=== PATIENT | male | born 1970 | race Caucasian/White ===

== ENCOUNTER 2018-04-02 04:29 | Emergency (ER) | payer BC ==
[~2018-04-02] VITALS: Ht 182.9 cm; Wt 95.5 kg
[2018-04-02 04:32] VITALS: TEMP 97.7
[2018-04-02] MEDS ORDERED: PRILOTC PO (04:39)
[2018-04-02] MEDS ORDERED: FLEXERIL 1010 MG/TAB PO (04:56)
[2018-04-02] MEDS ORDERED: NORCO 325 MG-51 TAB PO (04:56)
[2018-04-02 06:06] VITALS: BP 123/93; PULSE 71
== END 2018-04-02 06:08 | disposition home or self-care (01) ==
LOC: COL.ER 04:29
DX: M54.6 Pain in thoracic spine (principal); K21.9 Gastro-esophageal reflux disease without esophagitis; Z98.890 Other specified postprocedural states
CPT/HCPCS: J2360; J3010

== ENCOUNTER 2018-04-04 06:32 | Emergency (ER) | payer BC ==
[~2018-04-04] VITALS: Ht 182.9 cm; Wt 95.5 kg
[~2018-04-04 06:32] MED LIST: FLEXERIL 1010 MG/TAB PO; NORCO 325 MG-51 TAB PO; PRILOTC PO
[2018-04-04 06:37] VITALS: TEMP 99.1
[2018-04-04] MEDS ORDERED: LIDODERM 5% PATC1 EA TP (07:55)
[2018-04-04 08:02] VITALS: BP 124/67; PULSE 71
[2018-04-04] MEDS ORDERED: NORCO 325 MG-51 TAB PO (08:05)
== END 2018-04-04 08:32 | disposition home or self-care (01) ==
LOC: COL.ER 06:32
DX: M54.6 Pain in thoracic spine (principal); Z98.890 Other specified postprocedural states
CPT/HCPCS: J1885

== ENCOUNTER → 2018-12-23 | Outpatient (CLI) | payer BC ==
[~2018-12-23] MED LIST changes: +LIDODERM 5% PATC1 EA TP
== END ==
LOC: COL.RAD 12:29
DX: M47.23 Other spondylosis with radiculopathy, cervicothoracic region (principal)

== ENCOUNTER → 2019-01-26 | Outpatient (CLI) | payer BC | LOC: MHCPAIN 10:25 | DX: G89.29 Other chronic pain (principal); M54.12 Radiculopathy, cervical region; M47.812 Spondylosis without myelopathy or radiculopathy, cervical region | CPT/HCPCS: G0463 ==

== ENCOUNTER → 2019-04-06 | Outpatient (CLI) | payer BC | LOC: MHCPAIN 13:42 | DX: G89.29 Other chronic pain (principal); M54.12 Radiculopathy, cervical region; M47.812 Spondylosis without myelopathy or radiculopathy, cervical region | CPT/HCPCS: G0463 ==

== ENCOUNTER 2019-04-13 16:15 | Outpatient (RCR) | payer BC | END 2019-05-17 | disposition still patient (30) | LOC: WSPT | DX: M47.22 Other spondylosis with radiculopathy, cervical region (principal); G89.29 Other chronic pain ==